=== PATIENT | male | born 1945 | race Caucasian/White ===

== ENCOUNTER 2019-02-17 10:28 | Day surgery (SDC) | payer OTHER, MEDICARE ==
[2019-02-17] MEDS ORDERED: Ringers Lactate 1,000 ML IV ONE (10:52)
[2019-02-17] MEDS ORDERED: LIDOCAINE 1% MPF 2 ML AMPULE ONE (13:26)
[2019-02-17] MEDS ORDERED: PROPOFOL 200 MG/20 ML VIAL IV ONE (13:26)
--- NOTE | 2019-02-17 16:03 | ENDO RPT ---
[address], [address] COLONOSCOPY PROCEDURE REPORT EXAM DATE: 02/17/2019 PATIENT NAME: Brian Elizondo MR #: [id number] BIRTHDATE: 1945 ATTENDING: Manish Lam Dr STATUS: outpatient PARTY PLAN DEALER: Arlette Shelton RN and Mindy Keith RN INDICATIONS: The patient is a 73 yr old Male here for a colonoscopy due to personal history of colon polyps PROCEDURE PERFORMED: Colonoscopy MEDICATIONS: Per Anesthesia. ESTIMATED BLOOD LOSS: None CONSENT: The patient understands the risks and benefits of the procedure and understands that these risks include, but are not limited to: sedation, allergic reaction, infection, perforation and/or bleeding. Alternative means of evaluation and treatment include, among others: physical exam, x-rays, and/or surgical intervention. The patient elects to proceed with this endoscopic procedure. DESCRIPTION OF PROCEDURE: During intra-op preparation period all mechanical medical equipment was checked for proper function. Hand hygiene and appropriate measures for infection prevention was taken. Procedure, possible complications, alternatives including, but not limited to possibility of bleeding, perforation, tear, infection, sepsis, need for surgery, need for blood transfusion, were explained to the patient. After the risks, benefits and alternatives of the procedure were thoroughly explained, Informed consent was verified, confirmed and timeout was successfully executed by the treatment team. The patient was placed in the left lateral position. A digital rectal exam was performed and revealed no abnormalities of the rectum. After appropriate level of anesthesia, the scope was passed. The EC-[id number] ([id number]) endoscope was introduced through the anus and advanced to the terminal ileum which was intubated for a short distance. The quality of the prep was good. The instrument was then slowly withdrawn as the colon was fully examined. Scope withdrawal time was 7 minutes. COLON FINDINGS: Mild diverticulosis was noted in the sigmoid colon. No bleeding was noted from the diverticulosis. Moderate sized internal hemorrhoids were found. Retroflexed views revealed medium hemorrhoids. The scope was then completely withdrawn from the patient and the procedure terminated. ADVERSE EVENTS: There were no complications. IMPRESSIONS: 1. Mild diverticulosis in the sigmoid colon 2. Moderate sized internal hemorrhoids 3. Intubation to terminal ileum 4. Personal history of colon polyps RECOMMENDATIONS: fiber rich diet RECALL: Return in 3 year(s) for Colonoscopy. Manish Lam Dr eSigned: Manish Lam Dr 02/17/2019 1:43 PM cc: Gelacio Otto CPT CODES: ICD9 CODES: PATIENT NAME: Brian ElizondoEllen MR#: [id number]
== END 2019-02-17 14:07 | disposition home or self-care (01) ==
LOC: OR 10:28
PROVIDERS: ATTEND Internal Medicine Gastroenterology
PROC: 0DJD8ZZ Inspection of Lower Intestinal Tract, Via Natural or Artificial Opening Endoscopic (ICD-10-PCS; principal; 2019-02-17 13:30)
DX: Z12.11 Encounter for screening for malignant neoplasm of colon (principal); Z86.010 Personal history of colon polyps; K57.30 Diverticulosis of large intestine without perforation or abscess without bleeding; K64.8 Other hemorrhoids; E78.5 Hyperlipidemia, unspecified; I48.91 Unspecified atrial fibrillation; I25.10 Atherosclerotic heart disease of native coronary artery without angina pectoris; I10 Essential (primary) hypertension; I73.9 Peripheral vascular disease, unspecified; Z79.01 Long term (current) use of anticoagulants; Z79.899 Other long term (current) drug therapy; Z95.1 Presence of aortocoronary bypass graft; Z95.5 Presence of coronary angioplasty implant and graft; Z95.810 Presence of automatic (implantable) cardiac defibrillator; Z86.718 Personal history of other venous thrombosis and embolism
CPT/HCPCS: G0105; J2704; J2001

== ENCOUNTER → 2019-11-18 | Day surgery (SDC) | payer OTHER, MEDICARE ==
[2019-11-18 09:44] VITALS: BMI 27.6
--- NOTE | 2019-11-18 12:13 | RAD REPORT ---
EXAM DESCRIPTION: RAD - Myelography Lumbar - 11/18/2019 12:00 pm CLINICAL HISTORY: M545 Lumbar radiculopathy COMPARISON: Lumbar Spine 3 Views dated 08/17/2019 TECHNIQUE: Lumbar puncture for myelographic injection was performed under fluoroscopic guidance. The procedure, risks and alternatives to the procedure were discussed with the patient in detail. After answering all questions, both oral and written consent were obtained. Time-out procedure was performe d. The patient was placed in an oblique prone position on the fluoroscopic table. The skin of the lower back was prepped and draped in the usual sterile fashion. After anesthetizing the skin and deeper sof t tissues with 1% lidocaine, a 22 gauge needle was advanced into the thecal sac at the L4-5 level. 10 cc of Isovue 200M was injected into the central canal. At the conclusion of the procedure the needle was withdrawn and a sterile bandage placed over the pun cture site. The patient tolerated the procedure well without immediate complications. Patient was tra nsferred to CT for CT lumbar myelography, separately reported. Total fluoro time: 0.1 minutes Images obtained: 4 IMPRESSION: Successful fluoroscopic guided lumbar puncture for CT myelogram.
--- NOTE | 2019-11-18 12:27 | RAD REPORT ---
EXAM DESCRIPTION: CT - Spine Lumbar Wo Con - 11/18/2019 12:00 pm CLINICAL HISTORY: Radiculopathy. M545 COMPARISON: Myelography Lumbar dated 11/18/2019; Lumbar Spine 3 Views dated 08/17/2019 TECHNIQUE: CT lumbar myelography was performed. High-resolution disc space images were obtained. Cor onal and sagittal re-formatted images were also obtained. Lumbar puncture procedure for myelographic contrast injection is separately reported. All CT scans are performed using dose optimization technique as appropriate and may include automated exposure control or mA/KV adjustment according to patient size. FINDINGS: No acute lumbar spine fracture seen. No aggressive marrow pattern or malalignment. Paraspinal tissues are normal in thickness. No paraspinal abscess or hematoma seen. T12-L1: No evidence of canal or foraminal stenosis. L1-2: Minimal posterior disc bulge with no evidence of significant canal or foraminal stenosis. L2-3: Mild concentric posterior disc bulge slightly asymmetric to the left. Mild facet and ligamentum flavum hypertrophy. No significant canal or foraminal stenosis. L3-4: Moderate posterior disc bulge with [id number]-pkulhuec facet and ligamentum flavum hypertrophy. Mi ld central canal narrowing is present with the central canal measuring 9-10 mm in anterior posterior dimension at this level. Mild narrowing the anterior inferior aspects of both exit foramina seen. L4-5: Moderate posterior disc bulge is present with moderate facet hypertrophy. No significant centra l canal stenosis evident. Moderate narrowing the anterior inferior aspects of both exit foramina. L5-S1: No significant canal or foraminal stenosis. Mild infrarenal abdominal aortic aneurysm is present measuring 3.3 cm in anterior-posterior dimension . IMPRESSION: Sijg-qo-khyhgrxs lower lumbar spondylosis is present. No severe central canal or foramin al stenosis suspected at any level. Prominent facet hypertrophy was seen at L4-5 bilaterally.
[2019-11-18 12:58] VITALS: BP 126/51; TEMP 97.4; O2SAT 98
== END ==
LOC: DS 08:55
PROVIDERS: ATTEND Specialist
DX: M54.5 Low back pain (principal)
CPT/HCPCS: 72131; 62304; Q9966

== ENCOUNTER 2020-11-04 17:32 | Inpatient (IN) | payer OTHER, MEDICARE ==
[2020-11-04] MEDS ORDERED: dexAMETHasone 10 MG/ML VIAL ONE (18:06)
[2020-11-04] MEDS ORDERED: IPRATROPIUM BROM 0.5MG/2.5ML ONE (18:06)
[2020-11-04] MEDS ORDERED: LEVALBUTEROL 1.25 MG/3 ML NEB ONE (18:06)
[2020-11-04 18:09] LABS: Absolute Lymphocytes (CBC) 3.7 K/uL (0.7-4.9); Basophils % 0.5 % (0-1.3); Hematocrit 41.8 % (39.6-49.0); Lymphocytes % 51.1 % (15.3-44.8); MPV 10.2 fL (7.6-11.3); RBC Red Blood Cell Count 4.62 M/uL (4.33-5.43)
[2020-11-04 18:12] LABS: Protime INR 2.01
--- NOTE | 2020-11-04 18:13 | EDPHYS ---
Physician Documentation [facility] Name: Brian Elizondo Age: 74 yrs Sex: Male : 1945 Arrival Date: 11/04/2020 Time: 17:33 Bed 8 Private MD: ED Physician Jamie Devine HPI: 11/04 18:16 This 74 yrs old Male presents to ER via Wheelchair with complaints of Covid snw +, Shortness Of Breath. 18:16 The patient has shortness of breath at rest. Onset: The symptoms/episode began/occurred snw suddenly, this morning. Duration: The symptoms are continuous, and are steadily getting worse. Associated signs and symptoms: Pertinent positives: fever, diarrhea. Severity of symptoms: At their worst the symptoms were severe in the emergency department the symptoms have improved moderately. The patient has not experienced similar symptoms in the past, but family has similar symptoms, spouse, intubated CoV[facility]+ at [facility]. The patient has not recently seen a physician. Historical: - Allergies: 18:04 No Known Allergies; bp - Home Meds: 18:12 atenolol 25 mg Oral tab 1 tab once daily [Active]; clonazepam 1 mg Oral tab 1 tab bp nightly [Active]; lisinopril 2.5 mg Oral tab 1 tab once daily [Active]; Plavix 75 mg Oral tab 1 tab once daily [Active]; Xarelto 20 mg oral tab 1 tab once daily [Active]; Vitamin C 1,000 mg Oral tab [Active]; - PMHx: 18:04 CHF; CAD; bp - PSHx: 18:04 CABG; AAA REPAIR; AICD PLACEMENT; bp - Immunization history:: Adult Immunizations. - Social history:: Smoking status: Patient/guardian denies using tobacco. ROS: 18:17 Eyes: Negative for injury, pain, redness, and discharge, ENT: Negative for injury, snw pain, and discharge, Neck: Negative for injury, pain, and swelling, Cardiovascular: Negative for chest pain, palpitations, and edema. 18:17 Back: Negative for injury and pain, : Negative for injury, bleeding, discharge, and swelling, MS/Extremity: Negative for injury and deformity, Skin: Negative for injury, rash, and discoloration, Neuro: Negative for headache, weakness, numbness, tingling, and seizure, Psych: Negative for depression, anxiety, suicide ideation, homicidal ideation, and hallucinations. 18:17 Constitutional: Positive for body aches, fatigue, fever, malaise. 18:17 Respiratory: Positive for cough, dyspnea on exertion, shortness of breath, at rest. 18:17 Abdomen/GI: Positive for diarrhea. Exam: 18:13 Head/Face: Normocephalic, atraumatic. Eyes: Pupils equal round and reactive to light, snw extra-ocular motions intact. Lids and lashes normal. Conjunctiva and sclera are non-icteric and not injected. Cornea within normal limits. Periorbital areas with no swelling, redness, or edema. ENT: Nares patent. No nasal discharge, no septal abnormalities noted. Tympanic membranes are normal and external auditory canals are clear. Oropharynx with no redness, swelling, or masses, exudates, or evidence of obstruction, uvula midline. Mucous membranes moist. Neck: Trachea midline, no thyromegaly or masses palpated, and no cervical lymphadenopathy. Supple, full range of motion without nuchal rigidity, or vertebral point tenderness. No Meningismus. 18:13 Abdomen/GI: Soft, non-tender, with normal bowel sounds. No distension or tympany. No guarding or rebound. No evidence of tenderness throughout. Back: No spinal tenderness. No costovertebral tenderness. Full range of motion. MS/ Extremity: Pulses equal, no cyanosis. Neurovascular intact. Full, normal range of motion. Neuro: Awake and alert, GCS 15, oriented to person, place, time, and situation. Cranial nerves II-XII grossly intact. Motor strength 5/5 in all extremities. Sensory grossly intact. Cerebellar exam normal. Normal gait. Psych: Awake, alert, with orientation to person, place and time. Behavior, mood, and affect are within normal limits. 18:13 Constitutional: The patient appears awake, diaphoretic, lethargic, in obvious distress, obviously ill, pale. 18:13 Chest/axilla: Inspection: pacemaker to left chest wall. 18:13 Cardiovascular: Rate: tachycardic, Rhythm: regular, Heart sounds: normal. 18:13 Respiratory: severe repiratory distress is noted, Respirations: labored breathing, that is severe, accessory muscle usage, that is severe, grunting, that is severe, intercostal retractions, shallow respirations, tachypnea, Breath sounds: decreased breath sounds, rhonchi, that are moderate, are scattered. 18:13 Skin: Appearance: Color: dusky, Temperature: hot, Moisture: diaphoretic, diaphoresis is noted. Vital Signs: 17:59 Pulse 127; Pulse Ox 75% on R/A; jd3 18:06 BP 141 / 70; Pulse 102; Resp 30 S; Temp 102.0(A); Pulse Ox 95% on 100% BiPAP; jd3 19:03 BP 100 / 37; Pulse 92; Resp 25 S; Pulse Ox 97% on BiPAP; jd3 19:30 BP 100 / 44; jd3 19:52 BP 85 / 70; Pulse 81; Resp 22 S; Temp 98.2(O); Pulse Ox 97% on BiPAP; jd3 20:30 BP 124 / 53; Pulse 85; Resp 24; Pulse Ox 99% on BiPAP; zb 21:30 BP 106 / 48; Pulse 69; Resp 23; Pulse Ox 98% on BiPAP; zb 23:30 BP 95 / 70; Pulse 67; Resp 22; Pulse Ox 100% on BiPAP; zb 12 00:00 BP 100 / 48; Pulse 63; Resp 20; Pulse Ox 98% on BiPAP; zb 12 19:03 provider notified of blood pressure jd3 MDM: 18:12 Patient medically screened. snw 18:13 Antibiotic administration: zithromax. Data reviewed: vital signs, nurses notes, lab snw test result(s), EKG, radiologic studies. Counseling: I had a detailed discussion with the patient and/or guardian regarding: the historical points, exam findings, and any diagnostic results supporting the discharge/admit diagnosis, lab results, radiology results, the need for further work-up and treatment in the hospital, family requests transfer to [facility]. 18:18 ED course: attempting transfer to [facility] at family request. snw 11/04 17:44 Order name: Amylase, Serum; Complete Time: 18:28 iw 11/04 17:44 Order name: Basic Metabolic Panel; Complete Time: 18:28 iw 11/04 17:44 Order name: Blood Culture Adult (2) iw 11/04 17:44 Order name: CBC with Diff; Complete Time: 18:25 iw 11/04 17:44 Order name: Ckmb; Complete Time: 18:28 11/04 17:44 Order name: CPK; Complete Time: 18:28 11/04 17:44 Order name: Lactate; Complete Time: 18:50 11/04 19:12 Interpretation: LAC 4.6. snw 11/04 17:44 Order name: LFT's; Complete Time: 18:28 11/04 17:44 Order name: Lipase; Complete Time: 18:28 11/04 17:44 Order name: Procalcitonin; Complete Time: 19:12 iw 11/04 17:44 Order name: Protime (+inr); Complete Time: 18:25 11/04 17:44 Order name: Ptt, Activated; Complete Time: 18:25 11/04 17:44 Order name: Troponin (emerg Dept Use Only); Complete Time: 18:28 11/04 17:44 Order name: Urine Microscopic Only; Complete Time: 19:49 11/04 17:44 Order name: Chest Single View XRAY; Complete Time: 18:51 11/04 17:54 Order name: Flu; Complete Time: 21:22 11/04 17:54 Order name: Ferritin; Complete Time: 19:45 11/04 17:57 Order name: ABG; Complete Time: 18:28 [facility] 11/04 17:57 Order name: BIPAP [facility] 11/04 19:35 Order name: Urine Dipstick--Ancillary (enter results); Complete Time: 19:45 [facility] 11/04 19:51 Order name: Urine Culture; Complete Time: 13:20 EDMS 11/04 20:29 Order name: SARS-COV-2 RT PCR; Complete Time: 20:30 EDMS 11/04 22:11 Order name: Lactate Sepsis 2 HR Follow-up; Complete Time: 13:20 EDMS 11/04 23:38 Order name: ABO/RH typing; Complete Time: 13:20 EDMS 11/05 07:20 Order name: Procalcitonin; Complete Time: 13:20 EDMS 11/05 07:23 Order name: C-Reactive Protein; Complete Time: 13:20 EDMS 11/05 07:23 Order name: Ferritin; Complete Time: 13:20 EDMS 11/05 07:46 Order name: CBC with Automated Diff; Complete Time: 13:20 EDMS 11/04 17:44 Order name: Accucheck; Complete Time: 18:01 iw 11/04 17:44 Order name: Cardiac monitoring; Complete Time: 18:01 iw 11/04 17:44 Order name: EKG - Nurse/Tech; Complete Time: 18:01 iw 11/04 17:44 Order name: IV Saline Lock - Large Bore; Complete Time: 18:01 iw 11/04 17:44 Order name: Labs collected and sent; Complete Time: 18:01 iw 11/04 17:44 Order name: O2 Per Protocol; Complete Time: 18:02 iw 11/04 17:44 Order name: O2 Sat Monitoring; Complete Time: 18:02 iw 11/04 17:44 Order name: Urine Dipstick-Ancillary (obtain specimen); Complete Time: 02:18 iw 11/04 18:08 Order name: Pugh; Complete Time: 02:18 sn 11/04 20:43 Order name: Labs - recollect needed; Complete Time: 02:18 11/04 21:12 Order name: CONS Physician Consult EDMS Administered Medications: 17:56 CANCELLED (Other Intervention Used): NS 0.9% (30 ml/kg) 30 ml/kg IV at bolus once; [facility] Sepsis Protocol 17:59 Drug: Decadron - Dexamethasone 10 mg Route: IVP; Site: right forearm; zb 18:50 Follow up: Response: No adverse reaction jd3 18:23 Drug: Albuterol - atroVENT (3:1) (2.5 mg - 0.5 mg) 3 ml Route: Nebulizer; jd3 19:00 Follow up: Response: No adverse reaction jd3 18:24 Drug: Zithromax 500 mg Route: IVPB; Infused Over: 1 hrs; Site: right forearm; jd3 19:29 Follow up: Response: No adverse reaction; IV Status: Completed infusion; IV Intake: zb 250ml 18:25 Drug: NS 0.9% 500 ml Route: IV; Rate: bolus; Site: right forearm; jd3 19:00 Follow up: Response: No adverse reaction; IV Status: Completed infusion; IV Intake: jd3 500ml 18:47 Drug: NS 0.9% 500 ml Route: IV; Rate: bolus; Site: right forearm; jd3 19:28 Follow up: Response: No adverse reaction; Blood pressure is unchanged; IV Status: zb Completed infusion; IV Intake: 500ml 18:48 Not Given (Patient Refused): morphine 2 mg IVP once; (PAIN>8) RASS on ADMN: Combtv4, jd3 Very Agttd3, Agttd2, Rstlss1, AlertClm0, Drwsy-1, LtSdtn-2, ModSdtn-3, DpSdtn-4, UnArsble-5 x2 19:20 Drug: NS 0.9% 500 ml Route: IV; Rate: bolus; Site: right forearm; zb 19:51 Follow up: Response: No adverse reaction; IV Status: Completed infusion; IV Intake: jd3 500ml 19:45 Drug: Zosyn 3.375 grams Route: IVPB; Infused Over: 60 mins; Site: right forearm; jd3 19:58 Drug: NS 0.9% 500 ml Route: IV; Rate: bolus; Site: right forearm; jd3 Disposition: 11/04/20 18:12 Hospitalization ordered by Milad Oneill for Inpatient Admission. Preliminary diagnosis is SARS-associated coronavirus as the cause of diseases classified elsewhere. - Bed requested for Intensive Care Unit. - Status is Inpatient Admission. lp1 - Condition is Fair. - Problem is new. - Symptoms are unchanged. Addendum: 11/08/2020 04:53 Co-signature as Attending Physician, Jamie Devine MD I agree with the assessment and c mccarthy plan of care. Signatures: Dispatcher [employer] EDMS Geraldo Madera RN RN sg Anderson, Corey, MD MD cha Waters, Shelly, SCHOOL TRANSPORTATION SUPERVISOR-C SCHOOL TRANSPORTATION SUPERVISOR-Csnw Fariba Ac RN RN iw Haleigh Ruiz RN RN lp1 Dallas Bruno PA PA jr8 René Brito RN RN jSatish Moore RN RN ja1 Peltier, Brian, RN RN bp Westbrook, MyKena mw2 Mare Quinn RN RN zb Corrections: (The following items were deleted from the chart) 11/04 17:56 17:44 NS 0.9% (30 ml/kg) 30 ml/kg IV at bolus once; Sepsis Protocol ordered. iw snquintin 18:50 18:12 Hospitalization Ordered by Roslyn Montalvo MD for Inpatient Admission. Preliminary sn diagnosis is SARS-associated coronavirus as the cause of diseases classified elsewhere. Bed requested for Intensive Care Unit. Status is Inpatient Admission. Condition is Serious. Problem is new. Symptoms are unchanged. snw 19:50 17:54 CORONAVIRUS+.ELIZABETH ordered. EDID EDMS 20:30 18:50 11/04/2020 18:12 Hospitalization Ordered by Milad Oneill for Inpatient jr8 Admission. Preliminary diagnosis is SARS-associated coronavirus as the cause of diseases classified elsewhere. Bed requested for Intensive Care Unit. Status is Inpatient Admission. Condition is Serious. Problem is new. Symptoms are unchanged. snw 20:30 20:30 11/04/2020 18:12 Hospitalization Ordered by Milad Oneill for Inpatient jr8 Admission. Preliminary diagnosis is SARS-associated coronavirus as the cause of diseases classified elsewhere. Bed requested for Telemetry/MedSurg (Inpatient). Status is Inpatient Admission. Condition is Serious. Problem is new. Symptoms are unchanged. jr8 21:23 20:30 11/04/2020 18:12 Hospitalization Ordered by Milad Oneill for Inpatient mw2 Admission. Preliminary diagnosis is SARS-associated coronavirus as the cause of diseases classified elsewhere. Bed requested for Telemetry/MedSurg (Inpatient). Status is Inpatient Admission. Condition is Fair. Problem is new. Symptoms are unchanged. jr8 11/05 19:59 12 21:23 11/04/2020 18:12 Hospitalization Ordered by Milad Oneill for Inpatient ja1 Admission. Preliminary diagnosis is SARS-associated coronavirus as the cause of diseases classified elsewhere. Bed requested for [facility] ER HOLD. Status is Inpatient Admission. Condition is Fair. Problem is new. Symptoms are unchanged. mw2 11/05 20:49 19:59 11/04/2020 18:12 Hospitalization Ordered by Milad Oneill for Inpatient lp1 Admission. Preliminary diagnosis is SARS-associated coronavirus as the cause of diseases classified elsewhere. Bed requested for Intensive Care Unit. Status is Inpatient Admission. Condition is Fair. Problem is new. Symptoms are unchanged. ja1
--- NOTE | 2020-11-04 18:13 | ER ---
Nurse's Notes [facility] Name: Brian Elizondo Age: 74 yrs Sex: Male : 1945 Arrival Date: 11/04/2020 Time: 17:33 Bed 8 Private MD: Diagnosis: SARS-associated coronavirus as the cause of diseases classified elsewhere Presentation: 11/04 17:59 Chief complaint: Patient's son or daughter states: FEVER AND SOB TODAY, SPOUSE IS COVID bp +. Coronavirus screen: cough unrelated to allergies, fever, headache, shortness of breath. Ebola Screen: No symptoms or risks identified at this time. Initial Sepsis Screen: Does the patient meet any 2 criteria? RR > 20 per min. Temp <36.0*C (96.8*F)) or > 38.3*C (100.9*F). HR > 90 bpm. Yes Does the patient have a suspected source of infection? Yes: Productive cough/pneumonia. Risk Assessment: Do you want to hurt yourself or someone else? Patient reports no desire to harm self or others. Onset of symptoms was November 04, 2020. 17:59 Method Of Arrival: Wheelchair bp 17:59 Acuity: ALCIDES 2 bp Triage Assessment: 18:04 General: Appears distressed, uncomfortable, Behavior is appropriate for age, agitated, bp anxious. Pain: Denies pain. EENT: No deficits noted. Neuro: Level of Consciousness is awake, alert, obeys commands, Oriented to person, place, time, situation, Appropriate for age. Cardiovascular: Rhythm is sinus tachycardia. Respiratory: Reports shortness of breath Onset: The symptoms/episode began/occurred today, the patient has severe shortness of breath. GI: No signs and/or symptoms were reported involving the gastrointestinal system. : No signs and/or symptoms were reported regarding the genitourinary system. Derm: No deficits noted. Musculoskeletal: No deficits noted. Historical: - Allergies: 18:04 No Known Allergies; bp - Home Meds: 18:12 atenolol 25 mg Oral tab 1 tab once daily [Active]; clonazepam 1 mg Oral tab 1 tab bp nightly [Active]; lisinopril 2.5 mg Oral tab 1 tab once daily [Active]; Plavix 75 mg Oral tab 1 tab once daily [Active]; Xarelto 20 mg oral tab 1 tab once daily [Active]; Vitamin C 1,000 mg Oral tab [Active]; - PMHx: 18:04 CHF; CAD; bp - PSHx: 18:04 CABG; AAA REPAIR; AICD PLACEMENT; bp - Immunization history:: Adult Immunizations. - Social history:: Smoking status: Patient/guardian denies using tobacco. Screenin:00 Abuse screen: Denies threats or abuse. Denies injuries from another. Nutritional bp screening: No deficits noted. Tuberculosis screening: No symptoms or risk factors identified. Fall Risk None identified. Assessment: 18:06 General: SEE TRIAGE NOTE. PT MOVED TO TRAUMA 8 FOR IMMEDIATE CARE. Cardiovascular: bp Rhythm is sinus tachycardia. Respiratory: Airway is patent Respiratory effort is labored, gasping, Respiratory pattern is hyperventilation tachypnea Breath sounds with crackles bilaterally. Breath sounds with wheezes bilaterally. 19:00 General: Appears in no apparent distress. Behavior is calm, cooperative, appropriate zb for age. Neuro: Level of Consciousness is awake, alert, obeys commands, Oriented to person, place, time, situation. Cardiovascular: Heart tones Patient's skin is warm and dry. Respiratory: Airway is patent Respiratory effort is labored, Respiratory pattern is hyperventilation tachypnea Breath sounds with crackles bilaterally. GI: Bowel sounds present X 4 quads. Parent/caregiver reports the patient having diarrhea. : No signs and/or symptoms were reported regarding the genitourinary system. EENT: No signs and/or symptoms were reported regarding the EENT system. Derm: No signs and/or symptoms reported regarding the dermatologic system. Musculoskeletal: Circulation, motion, and sensation intact. Range of motion: intact in all extremities. 19:54 Reassessment: Patient and/or family updated on plan of care and expected duration. Pain jd3 level reassessed. Patient states feeling better. Patient states symptoms have improved. 20:58 Reassessment: Patient and/or family updated on plan of care and expected duration. Pain zb level reassessed. family at bedside. sx improved. diaper and lopez placed. pt with more relaxed respiration, report feeling better. 21:33 Reassessment: Patient appears in no apparent distress at this time. Patient and/or zb family updated on plan of care and expected duration. Pain level reassessed. Respiratory: Airway is patent Respiratory effort is even, unlabored, Respiratory pattern is tachypnea. 22:09 Reassessment: daughter: Kiarra Murphy, emergency contact, . jd3 22:52 Reassessment: [employer] pharmacist notified pt order for Remdesivir 200 mg IVPB, a sg voicemail has been left. Nova DEL VALLE notified that the [employer] [facility] pharmacy has not answered. Nova DEL VALLElion tamer to speak with the pharmacy [employer] for medication. 23:00 Reassessment: Patient appears in no apparent distress at this time. Patient and/or zb family updated on plan of care and expected duration. Pain level reassessed. daughter at bedside. pt moved from ER stretcher to hospital bed. 12 05:18 Reassessment: Pharmacist Yves states that will need to authorize the sg [employer] medication for the patient prior to releasing the med to the department. Blade Balancer Nova DEL VALLE notified. Vital Signs: 12 17:59 Pulse 127; Pulse Ox 75% on R/A; jd3 18:06 BP 141 / 70; Pulse 102; Resp 30 S; Temp 102.0(A); Pulse Ox 95% on 100% BiPAP; jd3 19:03 BP 100 / 37; Pulse 92; Resp 25 S; Pulse Ox 97% on BiPAP; jd3 19:30 BP 100 / 44; jd3 19:52 BP 85 / 70; Pulse 81; Resp 22 S; Temp 98.2(O); Pulse Ox 97% on BiPAP; jd3 20:30 BP 124 / 53; Pulse 85; Resp 24; Pulse Ox 99% on BiPAP; zb 21:30 BP 106 / 48; Pulse 69; Resp 23; Pulse Ox 98% on BiPAP; zb 23:30 BP 95 / 70; Pulse 67; Resp 22; Pulse Ox 100% on BiPAP; zb 11/05 00:00 BP 100 / 48; Pulse 63; Resp 20; Pulse Ox 98% on BiPAP; zb 11/04 19:03 provider notified of blood pressure jd3 ED Course: 17:33 Patient arrived in ED. ds1 17:55 [facility]C [facility] snw 17:55 Jamie Devine MD is Attending Physician. snw 17:55 Inserted saline lock: 20 gauge in right forearm, using aseptic technique. Blood bp collected. 18:00 Patient has correct armband on for positive identification. Bed in low position. Call bp light in reach. Side rails up X2. 18:01 Triage completed. bp 18:04 Arm band placed on. bp 18:06 Chest Single View XRAY In Process Unspecified. EDMS 18:12 Roslyn Montalvo MD is Hospitalizing Provider. snw 18:15 initiated a transfer with Ludivina from the [facility] Transfer Page. eb 18:21 Ludivina from the [facility] Transfer center called to decline the patient in transfer/ eb their COVID ICU is at capacity. 18:50 Jamie Devine MD is Hospitalizing Provider. snw 18:50 Hospitalizing Provider role handed off by Jamie Devine MD snw 18:50 Roslyn Montalvo MD is Hospitalizing Provider. snw 18:50 Roslyn Montalvo MD is Hospitalizing Provider. snw 18:50 Milad Oneill is Hospitalizing Provider. snw 18:58 Mare Quinn, IVON is Primary Nurse. zb 20:33 Lopez cath inserted, using sterile technique, 16 Fr., by nm, balloon inflated, to zb gravity drainage. 12 00:00 Report given to Haleigh DEL VALEL. jd3 00:00 No provider procedures requiring assistance completed. Patient admitted, IV remains in jd3 place. Administered Medications: 11/04 17:56 CANCELLED (Other Intervention Used): NS 0.9% (30 ml/kg) 30 ml/kg IV at bolus once; [facility] Sepsis Protocol 17:59 Drug: Decadron - Dexamethasone 10 mg Route: IVP; Site: right forearm; zb 18:50 Follow up: Response: No adverse reaction jd3 18:23 Drug: Albuterol - atroVENT (3:1) (2.5 mg - 0.5 mg) 3 ml Route: Nebulizer; jd3 19:00 Follow up: Response: No adverse reaction jd3 18:24 Drug: Zithromax 500 mg Route: IVPB; Infused Over: 1 hrs; Site: right forearm; jd3 19:29 Follow up: Response: No adverse reaction; IV Status: Completed infusion; IV Intake: zb 250ml 18:25 Drug: NS 0.9% 500 ml Route: IV; Rate: bolus; Site: right forearm; jd3 19:00 Follow up: Response: No adverse reaction; IV Status: Completed infusion; IV Intake: jd3 500ml 18:47 Drug: NS 0.9% 500 ml Route: IV; Rate: bolus; Site: right forearm; jd3 19:28 Follow up: Response: No adverse reaction; Blood pressure is unchanged; IV Status: zb Completed infusion; IV Intake: 500ml 18:48 Not Given (Patient Refused): morphine 2 mg IVP once; (PAIN>8) RASS on ADMN: Combtv4, jd3 Very Agttd3, Agttd2, Rstlss1, AlertClm0, Drwsy-1, LtSdtn-2, ModSdtn-3, DpSdtn-4, UnArsble-5 x2 19:20 Drug: NS 0.9% 500 ml Route: IV; Rate: bolus; Site: right forearm; zb 19:51 Follow up: Response: No adverse reaction; IV Status: Completed infusion; IV Intake: jd3 500ml 19:45 Drug: Zosyn 3.375 grams Route: IVPB; Infused Over: 60 mins; Site: right forearm; jd3 19:58 Drug: NS 0.9% 500 ml Route: IV; Rate: bolus; Site: right forearm; jd3 Intake: 19:00 IV: 500ml; Total: 500ml. jd3 19:28 IV: 500ml; Total: 1000ml. zb 19:29 IV: 250ml; Total: 1250ml. zb 19:51 IV: 500ml; Total: 1750ml. jd3 Outcome: 18:12 Decision to Hospitalize by Provider. snw 11/05 00:56 Admitted to ER Hold. Please see [facility] for further documentation. jd3 Condition: stable Instructed on the need for admit. 20:49 Patient left the ED. lp1 Signatures: Dispatcher [employer] EDGeraldo Tracey RN RN sg Waters, Shelly, OBSERVER HELPER-C OBSERVER HELPER-Rhiannon Shah ds1 Haleigh Ruiz RN RN lp1 René Brito RN RN jBarry Kelley RN RN bp Botello, Elizabeth eb Brown, Zipporah, RN RN zb Corrections: (The following items were deleted from the chart) 11/04 18:06 17:59 Pulse 127bpm; Pulse Ox 84% RA; bp jd3 19:29 19:03 BP 100 / 37; Pulse 92bpm; Resp 25bpm; Spontaneous; Pulse Ox 97% BiPAP; provider jd3 notified of blood pressure; jd3 19:30 19:03 BP 100 / 49; Pulse 92bpm; Resp 25bpm; Spontaneous; Pulse Ox 97% BiPAP; provider jd3 notified of blood pressure; jd3 21:06 20:58 Reassessment: Patient and/or family updated on plan of care and expected zb duration. Pain level reassessed. family at bedside. sx improved. diaper and lopez placed zb 11/05 00:51 11/04 19:54 Reassessment: Patient and/or family updated on plan of care and expected jd3 duration. Pain level reassessed. Patient states feeling better. Patient states symptoms have improved. jd3
[2020-11-04 18:14] LABS: Arterial Blood Carboxyhemoglob 1.2 % (0-1.5); Blood Gas Oxyhemoglobin 94.6 % (94-97); Blood O2 Saturation 96.6 % (92-98.5)
[2020-11-04 18:26] LABS: ALT/SGPT 133 U/L (12-78); AST/SGOT 210 U/L (15-37); Albumin 3.2 g/dL (3.4-5.0); Alkaline Phosphatase 74 U/L (45-117); Amylase 57 U/L (25-115); BUN Blood Urea Nitrogen 20 mg/dL (7-18); Bicarbonate 21 mmol/L (21-32); Bilirubin Direct 0.3 mg/dL (0-0.2); Bilirubin Total 0.8 mg/dL (0.2-1.0); CKMB Creatine Kinase MB < 1.0 ng/mL (0.3-3.6); Creatine Phosphokinase 199 U/L (39-308); Glucose Level 155 mg/dL (74-106); Lipase 131 U/L (73-393); Potassium 4.8 mmol/L (3.5-5.1); Protein, Total 7.1 g/dL (6.4-8.2); Sodium Level 138 mmol/L (136-145); Troponin (Emerg Dept Use Only) 0.08 ng/mL (0.0-0.045)
[2020-11-04] MEDS ORDERED: NA CHLORIDE 0.9% 500 ML ONE ×3 (18:29→20:10)
--- NOTE | 2020-11-04 18:48 | RAD REPORT ---
EXAM DESCRIPTION: RAD - Chest Single View - 11/04/2020 6:06 pm CLINICAL HISTORY: SOB Chest pain. COMPARISON: CHEST PA AND LAT 2 VIEW dated 10/01/2011; CHEST PA AND LAT 2 VIEW dated 04/02/2008 FINDINGS: Portable technique limits examination quality. Moderate to large areas of bilateral pulmonary infiltrate is present, greatest in the right upper lob e, most compatible with pneumonia. The heart is moderately enlarged with sternotomy wires present. Mu lti lead pacer/ defibrillator device is noted. IMPRESSION: Moderate to significant bilateral pneumonia pattern, greater on the right.
[2020-11-04] MEDS ORDERED: MORPHINE 2 MG/ML SYR ONE (18:54)
[2020-11-04] MEDS ORDERED: AZITHROMYCIN IV 500 MG in NA CHLORIDE 0.9% 250 ML IVPB ONE (19:00)
[2020-11-04 19:37] LABS: Urine Blood 1+ (NEG); Urine Glucose NEGATIVE (NEG); Urine Protein 3+ (NEG); Urine Specific Gravity >1.030 (1.005-1.030); Urine pH 5.5 (5.0-7.0)
[2020-11-04] MEDS ORDERED: PIPER/TAZO/NS 3.375gm 0 GM/0 ML BAG ONE (19:47)
[2020-11-04 19:48] LABS: Urine Bacteria 20-50 /HPF (NONE SEEN); Urine RBC <5 /HPF (NONE SEEN)
[2020-11-04 19:49] LABS: Urine Amorphous Sediment 2+ /HPF (NONE SEEN); Urine Mucus 3+ /HPF (NONE SEEN)
[2020-11-04] MEDS ORDERED: RIVAROXABAN 10 MG TABLET PO SCH (22:16)
[2020-11-04] MEDS ORDERED: Remdesivir 200 MG in NA CHLORIDE 0.9% 250 ML IV ONE (22:16)
[2020-11-04] MEDS ORDERED: DIPHENHYDRAMINE 50 MG/ML VIAL IV ONE (22:16)
[2020-11-04] MEDS ORDERED: ACETAMINOPHEN 325 MG TABLET PO ONE (22:16)
[2020-11-04] MEDS ORDERED: NA CHLORIDE 0.9% 250 ML IV ONE (22:16)
[2020-11-04] MEDS ORDERED: DIPHENHYDRAMINE 50 MG/ML VIAL ONE (23:15)
[2020-11-04] MEDS ORDERED: NA CHLORIDE 0.9% 0 ML ONE (23:15)
[2020-11-04] MEDS ORDERED: ACETAMINOPHEN 325 MG TABLET ONE (23:17)
--- NOTE | 2020-11-04 23:58 | P.HP ---
Certification for Inpatient Patient admitted to: Inpatient With expected LOS: >2 Midnights Patient will require the following post-hospital care: None Practitioner: I am a practitioner with admitting privileges, knowledge of patient current condition, hospital course, and medical plan of care. Services: Services provided to patient in accordance with Admission requirements found in Title 42 Section 412.3 of the Code of Federal Regulations <Asher Bruno - Last Filed: 11/04/20 23:45> Patient History Date of Service: 11/04/20 Primary Care Provider: No PCP Reason for admission: Severe Sepsis, COVID-19, Pneumonia History of Present Illness: This is a 74-year-old male that was brought in by family to the emergency room today for increased shortness of breath that started today. Patient stated that he has had diarrhea and fever for the last week or more but today started with shortness of breath. Currently patient's is [facility] in the medical center for COVID and is intubated. Family stated that they were going to initially drive him up there but progressively got worse in the car and started to become diaphoretic and more short of breath. Was diverted to the hospital at that time. Patient noted to have elevated troponin at 0.08 a pro calcitonin of 11.65 and a lactate of 4.6. Patient did have a fever as well at 102.0 and was tachycardic upon arrival with a room air saturation of 75%. Patient did test coated positive in the emergency room. Concern for sepsis as well based on lab values. Chest x-ray did show bilateral pulmonary up a cities worse on the right side suggestive of pneumonia. Hospital was consulted at that time for admission. Home medications list reviewed: Yes - Past Medical/Surgical History Diabetic: No - Social History Smoking Status: Never smoker Smoking therapy provided: No Alcohol use: No CD- Drugs: No Caffeine use: Yes Place of Residence: Home <PatcherelleAsher - Last Filed: 11/04/20 23:45> Date of Service: 11/05/20 - Family History Mother -: Cancer Notes: Brain cancer Father -: Cancer Notes: Prostate cancer <mejia zambrano - Last Filed: 11/05/20 17:55> Allergies iodine Allergy (Verified 11/05/20 01:00) Hives/Rash Home Medications: Clopidogrel Bisulfate [Plavix] 75 mg PO DAILY 02/17/19 Lisinopril [Zestril] 2.5 mg PO DAILY 02/17/19 Rivaroxaban [Xarelto] 20 mg PO BEDTIME 02/17/19 atenoloL [Tenormin] 25 mg PO DAILY 02/17/19 clonazePAM [Clonazepam] 1 mg PO BEDTIME 02/17/19 Ascorbic Acid [Vitamin C] 1,000 mg PO DAILY 11/05/20 Review of Systems General: Fever, Chills, Sweats, Malaise Eyes: Unremarkable ENT: Unremarkable Respiratory: Shortness of Breath, SOB with Excertion Cardiovascular: Unremarkable Gastrointestinal: Unremarkable Genitourinary: Unremarkable Musculoskeletal: Unremarkable Integumentary: Unremarkable Neurological: Unremarkable Lymphatics: Unremarkable <Asher Bruno - Last Filed: 11/04/20 23:45> Physical Examination - Vital Signs Temperature: 102.0 F Blood Pressure: 102/64 Pulse: 67 Respirations: 30 Pulse Ox (%): 95 (BIPAP) - Physical Exam General: Alert, In no apparent distress, Oriented x3, Cooperative HEENT: PERRLA, EOMI Neck: Supple, JVD not distended, No Thyromegaly Respiratory: Crackles/rales Cardiovascular: No edema, Normal pulses, Regular rate/rhythm, Normal S1 S2, No gallops, No rubs, No murmurs Capillary refill: <2 Seconds Gastrointestinal: Soft and benign, Non-distended, No ascites, No tenderness, No masses, No rebound, No guarding Musculoskeletal: No clubbing, No swelling, No contractures, No erythema, No tenderness, No warmth Integumentary: No rashes, No breakdown, No significant lesion, No tenderness/swelling, No erythema, No warmth, No cyanosis Neurological: Normal speech, Normal strength at 5/5 x4 extr, Normal tone, Sensation intact, Normal affect Lymphatics: No axilla or inguinal lymphadenopathy - Studies Laboratory Data (last 24 hrs) 11/04/20 17:49: PT 23.4 H, INR 2.01, APTT 34.1 11/04/20 17:49: WBC 7.3, Hgb 14.0, Hct 41.8, Plt Count 105 L 11/04/20 17:49: Sodium 138, Potassium 4.8, BUN 20 H, Creatinine 1.65 H, Glucose 155 H, Total Bilirubin 0.8, AST 210 H, ALT 133 H, Alkaline Phosphatase 74, Amylase 57, Lipase 131 Microbiology Data (last 24 hrs): 11/04/20 17:54 Nasopharnyx Influenza Type A Antigen Screen - Final 11/04/20 17:54 Nasopharnyx Influenza Type B Antigen Screen - Final <Asher Bruno - Last Filed: 11/04/20 23:45> - Studies Laboratory Data (last 24 hrs) 11/04/20 17:49: PT 23.4 H, INR 2.01, APTT 34.1 11/04/20 17:49: WBC 7.3, Hgb 14.0, Hct 41.8, Plt Count 105 L 11/04/20 17:49: Sodium 138, Potassium 4.8, BUN 20 H, Creatinine 1.65 H, Glucose 155 H, Total Bilirubin 0.8, AST 210 H, ALT 133 H, Alkaline Phosphatase 74, Amylase 57, Lipase 131 Microbiology Data (last 24 hrs): 11/04/20 17:54 Nasopharnyx Influenza Type A Antigen Screen - Final 11/04/20 17:54 Nasopharnyx Influenza Type B Antigen Screen - Final <mejia zambrano - Last Filed: 11/05/20 17:55> Assessment and Plan - Problems (Diagnosis) (1) Severe sepsis Current Visit: Yes Status: Acute (2) Pneumonia Current Visit: Yes Status: Acute (3) COVID-19 Current Visit: Yes Status: Acute - Plan 1. Patient admitted to COVID unit for further evaluation 2. Patient started on broad spectrum Abx for sepsis with suspected pneumonia 3. Fluids per sepsis protocol was given. Will hold otherwise for now as patient has covid unless BP decreases 4. Patient started on steroids, Remdisivir, and plasma for severe covid 5. Pulmonology consulted 6. Will continue patient Xarelto as he is already on this for other heart related conditions 7. Patient will remain on BIPAP for now with intent to downgrade to High Flow if her improves over next 24 hours or so 8. Will trend procalcitonin and CRP levels 9. Cardiology consulted as well Discharge Plan: Home Plan to discharge in: Greater than 2 days - Advance Directives Does patient have a Living Will: Yes Does patient have a Durable POA for Healthcare: Yes - Code Status/Comfort Care Code Status Assessed: Yes Code Status: Do Not Intubate Critical Care: Yes (30 minutes assessing patient, documenting, and reviwing labs and imaging) Time Spent Managing Pts Care (In Minutes): 70 <Asher Bruno - Last Filed: 11/04/20 23:45> - Problems (Diagnosis) (1) Acute respiratory failure with hypoxia Current Visit: Yes Status: Acute (2) Pneumonia due to 2019 novel coronavirus Current Visit: Yes Status: Acute (3) Severe sepsis Current Visit: Yes Status: Acute Physician Review: Patient Assessed, Agree with Above Assessment and Plan Physician Review Additional Text: Acute respiratory failure with hypoxia COVID pneumonia Plan: BiPAP therapy IV steroid Patient given convalescent plasma. Pulmonology consult. <mejia zambrano - Last Filed: 11/05/20 17:55>
[2020-11-05] MEDS ORDERED: RIVAROXABAN 20 MG TABLET PO ONE ×2 (00:26→18:06)
[2020-11-05] MEDS ORDERED: DIPHENHYDRAMINE 50 MG/ML VIAL ONE (03:44)
[2020-11-05] MEDS ORDERED: ACETAMINOPHEN 325 MG TABLET ONE (03:44)
[2020-11-05] MEDS ORDERED: NA CHLORIDE 0.9% 250 ML ONE (03:45)
[2020-11-05] MEDS ORDERED: PIPER/TAZO/NS 3.375gm 3.375 GM/100 ML BAG IVPB SCH ×2 (05:00→17:00)
[2020-11-05 06:25] LABS: Absolute Lymphocytes (CBC) 0.6 K/uL (0.7-4.9); Basophils % 0.3 % (0-1.3); Lymphocytes % 15.5 % (15.3-44.8); MPV 9.9 fL (7.6-11.3); RBC Red Blood Cell Count 3.56 M/uL (4.33-5.43)
[2020-11-05] MEDS ORDERED: PIPER/TAZO/NS 3.375gm 3.375 GM/100 ML BAG ONE (06:55)
[2020-11-05 07:23] LABS: Ferritin 4254.8 ng/mL (26-388)
[2020-11-05] MEDS: THIAMINE HCL 100 MG TABLET PO SCH (09:00)
[2020-11-05] MEDS ORDERED: FAMOTIDINE 20 MG/2 ML VIAL IV SCH (09:00)
[2020-11-05] MEDS: VITAMIN D 1000 UNIT TAB PO SCH (09:00)
[2020-11-05] MEDS: METHYLPREDNISOLONE 125 MG INJ IV SCH ×2 (09:00→21:01)
[2020-11-05] MEDS ORDERED: Remdesivir 100 MG in NA CHLORIDE 0.9% 250 ML IV SCH (09:00)
[2020-11-05] MEDS ORDERED: FAMOTIDINE 20 MG/2 ML VIAL IV ONE (09:46)
[2020-11-05] MEDS ORDERED: METHYLPREDNISOLONE 40 MG INJ ONE (09:46)
[2020-11-05] MEDS ORDERED: NA CHLORIDE 0.9% 500 ML IV PRN (11:07)
[2020-11-05] MEDS: ATORVASTATIN 20 MG TAB PO SCH ×2 (11:11→21:01)
--- NOTE | 2020-11-05 11:12 | P.CNS ---
Date of Consult: 11/07/20 Primary Care Provider: No PCP Chief Complaint: Severe Sepsis, COVID-19, Pneumonia History of Present Illness: Patient is 74 years of age admitted with pneumonia due to holly virus is been sick for about a week patient tested positive for coronavirus is is in [facility] intubated currently saturating 100% on 40% FiO2 on BiPAP feeling fine Allergies iodine Allergy (Verified 11/05/20 01:00) Hives/Rash Home Medications: Clopidogrel Bisulfate [Plavix] 75 mg PO DAILY 02/17/19 Lisinopril [Zestril] 2.5 mg PO DAILY 02/17/19 Rivaroxaban [Xarelto] 20 mg PO BEDTIME 02/17/19 atenoloL [Tenormin] 25 mg PO DAILY 02/17/19 clonazePAM [Clonazepam] 1 mg PO BEDTIME 02/17/19 Ascorbic Acid [Vitamin C] 1,000 mg PO DAILY 11/05/20 - Past Medical/Surgical History Diabetic: No -: CHF -: CAD -: RLS -: CABG -: AAA Repair -: AICD placement -: Jessica - Family History Mother Medical History: Cancer Notes: Brain cancer Father Medical History: Cancer Notes: Prostate cancer - Social History Alcohol use: No CD- Drugs: No Caffeine use: Yes Place of Residence: Home Review of Systems General: Weakness Respiratory: Cough, Shortness of Breath Physical Examination Temp Pulse Resp BP Pulse Ox 98.2 F 63 14 98/49 L 100 11/05/20 07:59 11/05/20 07:59 11/05/20 07:59 11/05/20 07:59 11/05/20 07:59 General: Alert, In no apparent distress, Oriented x3 Respiratory: Crackles/rales (Crackles on the right side) Cardiovascular: No edema, Regular rate/rhythm, Normal S1 S2 Laboratory Data (last 24 hrs) 11/04/20 17:49: PT 23.4 H, INR 2.01, APTT 34.1 11/04/20 17:49: WBC 7.3, Hgb 14.0, Hct 41.8, Plt Count 105 L 11/04/20 17:49: Sodium 138, Potassium 4.8, BUN 20 H, Creatinine 1.65 H, Glucose 155 H, Total Bilirubin 0.8, AST 210 H, ALT 133 H, Alkaline Phosphatase 74, Amylase 57, Lipase 131 - Problems (1) Pneumonia due to 2019 novel coronavirus Current Visit: Yes Status: Acute Plan: Patient is 74 years of age admitted with pneumonia due to holly virus he is improving roving changer to nasal cannula oxygen continue with steroids IV fluid bolus change to IV levofloxacin monitor CRP continue with the steroid monitor daily CRP levels and chemistries
[2020-11-05] MEDS ORDERED: Levofloxacin 750mg IV 750 MG/150 ML BAG IV SCH (12:00)
--- NOTE | 2020-11-05 12:07 | P.PN ---
Subjective Date of Service: 11/05/20 Primary Care Provider: No PCP Chief Complaint: Severe Sepsis, COVID-19, Pneumonia Patient is clinically improving. He was stable on the BiPAP when I saw him this morning with SaO2 at 100%. Physical Examination - Vital Signs Temperature: 98.2 F Blood Pressure: 98/49 Pulse: 63 Respirations: 14 Pulse Ox (%): 100 - Physical Exam General: In no apparent distress HEENT: Other (BIPAP in place) Cardiovascular: No edema, Regular rate/rhythm Gastrointestinal: Non-distended Musculoskeletal: No swelling Integumentary: No rashes, No erythema Neurological: Other (Nonfocal) - Studies Laboratory Data (last 24 hrs) 11/04/20 17:49: PT 23.4 H, INR 2.01, APTT 34.1 11/04/20 17:49: WBC 7.3, Hgb 14.0, Hct 41.8, Plt Count 105 L 11/04/20 17:49: Sodium 138, Potassium 4.8, BUN 20 H, Creatinine 1.65 H, Glucose 155 H, Total Bilirubin 0.8, AST 210 H, ALT 133 H, Alkaline Phosphatase 74, Amylase 57, Lipase 131 Microbiology Data (last 24 hrs): 11/04/20 17:54 Nasopharnyx Influenza Type A Antigen Screen - Final 11/04/20 17:54 Nasopharnyx Influenza Type B Antigen Screen - Final Assessment And Plan - Current Problems (Diagnosis) (1) Acute respiratory failure with hypoxia Current Visit: Yes Status: Acute (2) Pneumonia due to 2019 novel coronavirus Current Visit: Yes Status: Acute (3) Severe sepsis Current Visit: Yes Status: Acute - Plan Lactic level now within normal limit. Pro calcitonin level has improved. Continue IV steroid. Antibiotics switched to IV Levaquin. Continue to monitor inflammatory markers Continue Xarelto for thromboembolism prophylaxis. Pulmonary input appreciated. Status post convalescent plasma. Wean oxygen as tolerated.
[2020-11-05] MEDS: ASCORBIC ACID 500 MG TABLET PO SCH ×2 (13:21→21:01)
[2020-11-05] MEDS ORDERED: NA CHLORIDE 0.9% 0 ML ONE ×2 (13:27→13:28)
[2020-11-05] MEDS ORDERED: ASCORBIC ACID 500 MG TABLET ONE (13:28)
[2020-11-05] MEDS ORDERED: Levofloxacin 750mg IV 750 MG/150 ML BAG IV ONE (13:28)
[2020-11-05] MEDS ORDERED: RIVAROXABAN 20 MG TABLET PO SCH (17:00)
[2020-11-05] MEDS: ACETAMINOPHEN 325 MG TABLET PO PRN (17:25)
[2020-11-05] MEDS ORDERED: MELATONIN 3 MG TABLET PO SCH (21:00)
[2020-11-05] MEDS ORDERED: clonazePAM 1 MG TAB PO SCH (21:00)
[2020-11-05] MEDS ORDERED: NA CHLORIDE 0.9% 500 ML ONE (23:17)
[2020-11-06] MEDS: ACETAMINOPHEN 325 MG TABLET PO PRN (04:02)
[2020-11-06] MEDS ORDERED: LORazepam 2 MG/ML VIAL ONE ×2 (05:11→06:31)
[2020-11-06] MEDS ORDERED: HALOPERIDOL LACT 5 MG/ML INJ ONE (05:11)
[2020-11-06] MEDS ORDERED: METOPROLOL TARTRATE 5 MG/5 ML INJ IV ONE (05:33)
[2020-11-06] MEDS ORDERED: FUROSEMIDE 20 MG/ 2ML VIAL ONE (05:39)
[2020-11-06] MEDS ORDERED: MIDAZOLAM HCL 2 MG/2 ML INJ ONE (05:55)
[2020-11-06] MEDS ORDERED: RSI MEDICATION KIT IV ONE (06:24)
[2020-11-06] MEDS ORDERED: MIDAZOLAM HCL 2 MG/2 ML INJ IV PRN ×2 (06:25→08:12)
[2020-11-06] MEDS ORDERED: FUROSEMIDE 40 MG/4 ML VIAL ONE (06:28)
[2020-11-06 06:33] VITALS: BMI 30.2
[2020-11-06] MEDS ORDERED: LORazepam 2 MG/ML VIAL IV PRN ×3 (06:44→08:16)
[2020-11-06] MEDS ORDERED: HALOPERIDOL LACT 5 MG/ML INJ IV PRN ×2 (06:45→08:12)
[2020-11-06 06:54] LABS: C-Reactive Protein 68.1 mg/L (<3.00); Ferritin 3543.2 ng/mL (26-388)
[2020-11-06 08:35] LABS: Absolute Lymphocytes (CBC) 0.3 K/uL (0.7-4.9); Basophils % 0.4 % (0-1.3); Hematocrit 39.9 % (39.6-49.0); Lymphocytes % 2.6 % (15.3-44.8); MPV 10.2 fL (7.6-11.3); RBC Red Blood Cell Count 4.41 M/uL (4.33-5.43)
[2020-11-06 08:43] LABS: Potassium 4.6 mmol/L (3.5-5.1)
[2020-11-06 09:00] VITALS: TEMP 98.7
[2020-11-06] MEDS ORDERED: FAMOTIDINE 20 MG/2 ML VIAL IV SCH (09:00)
[2020-11-06] MEDS: THIAMINE HCL 100 MG TABLET PO SCH (09:00)
[2020-11-06] MEDS ORDERED: ZINC SULFATE 220 MG CAP PO SCH (09:00)
[2020-11-06] MEDS: VITAMIN D 1000 UNIT TAB PO SCH (09:00)
[2020-11-06] MEDS: ASCORBIC ACID 500 MG TABLET PO SCH (09:00)
[2020-11-06] MEDS ORDERED: METHYLPREDNISOLONE 125 MG INJ IV SCH (09:00)
[2020-11-06] MEDS ORDERED: ENOXAPARIN 100 MG/ML SYR SQ SCH (09:00)
[2020-11-06 10:32] LABS: White Blood Cell Scan OK (OK)
[2020-11-06 10:33] LABS: Blood Morphology Comment NOT SEEN (NOT SEEN); Platelet Estimate ADEQ
[2020-11-06] MEDS ORDERED: MORPHINE 4 MG/ML SYR IV PRN (10:33)
--- NOTE | 2020-11-06 11:47 | RAD REPORT ---
EXAM DESCRIPTION: RAD - Chest Single View - 11/06/2020 6:03 am CLINICAL HISTORY: shortness of breath Chest pain. COMPARISON: Chest Single View dated 11/04/2020; CHEST PA AND LAT 2 VIEW dated 10/01/2011; CHEST PA AN D LAT 2 VIEW dated 04/02/2008 FINDINGS: Portable technique limits examination quality. Significant bilateral areas of airspace consolidation again seen, mildly worse than on the comparativ e study. In particular, right lung base aeration appears moderately worse. The heart is mildly enlarg ed in size. Multilead pacer/defibrillator device is present.Sternotomy wires present. IMPRESSION: Mild to moderate worsening in lung aeration seen since comparative study.
[2020-11-06 11:48] VITALS: O2SAT 94
--- NOTE | 2020-11-06 12:44 | P.DS ---
Admission Date: 11/06/20 Discharge Date: 11/06/20 Primary Care Provider: Bibiana PCP Disposition: Reason for Admission: Severe Sepsis, COVID-19, Pneumonia - Problems (1) Acute respiratory failure with hypoxia Status: Acute (2) Pneumonia due to 2019 novel coronavirus Status: Acute (3) Severe sepsis Status: Acute Brief History of Present Illness: 74-year-old gentleman with a history of hypertension was brought to the emergency department due to shortness of breath. His symptoms started 1 week failure with fever and diarrhea. Patient developed shortness of breath which became rapidly progressive. [facility]. Patient tested positive for COVID pneumonia. His oxygen saturation was 75% on room air and he was in respiratory distress. His chest x-ray demonstrated bilateral infiltrate indicative of COVID pneumonia. Patient was requiring BiPAP ventilation in the ED. He was admitted for further management. Hospital Course: Patient admitted and ventilated with BiPAP. He was DO not intubate and do not resuscitate. He was started on IV steroid, given convalescent plasma. He was on Xarelto anticoagulation which was continued. Patient respiratory condition worsened. He was not tolerating BiPAP, he became tachypneic and tachycardic and quite uncomfortable. Family requested withdrawal of treatment and comfort measures. Comfort measures was initiated. Patient within a few hours after initiating the comfort measures. Patient on 11/06/2020 at 11:20 am. Vital Signs/Physical Exam: Temp Pulse Resp BP Pulse Ox 98.7 F 86 38 H 119/56 L 100 11/06/20 08:00 11/06/20 08:00 11/06/20 08:00 11/06/20 08:00 11/06/20 08:00 Laboratory Data at Discharge: WBC 10.0 K/uL (4.3-10.9) D 11/06/20 08:16 Hgb 13.0 g/dL (13.6-17.9) L 11/06/20 08:16 Hct 39.9 % (39.6-49.0) D 11/06/20 08:16 Plt Count 146 K/uL (152-406) L D 11/06/20 08:16 PT 23.4 SECONDS (9.5-12.5) H 11/04/20 17:49 INR 2.01 12/04/20 17:49 APTT 34.1 SECONDS (24.3-36.9) 11/04/20 17:49 Sodium 138 mmol/L (136-145) 11/06/20 08:16 Potassium 4.6 mmol/L (3.5-5.1) 11/06/20 08:16 BUN 32 mg/dL (7-18) H 11/06/20 08:16 Creatinine 1.52 mg/dL (0.55-1.3) H 11/06/20 08:16 Glucose 192 mg/dL (74-106) H 11/06/20 08:16 Total Bilirubin 0.8 mg/dL (0.2-1.0) 11/04/20 17:49 AST 210 U/L (15-37) H 11/04/20 17:49 ALT 133 U/L (12-78) H 11/04/20 17:49 Alkaline Phosphatase 74 U/L (45-117) 11/04/20 17:49 Amylase 57 U/L (25-115) 11/04/20 17:49 Lipase 131 U/L (73-393) 11/04/20 17:49 Home Medications: Clopidogrel Bisulfate [Plavix] 75 mg PO DAILY 02/17/19 Lisinopril [Zestril] 2.5 mg PO DAILY 02/17/19 Rivaroxaban [Xarelto] 20 mg PO BEDTIME 02/17/19 atenoloL [Tenormin] 25 mg PO DAILY 02/17/19 clonazePAM [Clonazepam] 1 mg PO BEDTIME 02/17/19 Ascorbic Acid [Vitamin C] 1,000 mg PO DAILY 11/05/20 Followup: Main Sosa MD [Primary Care Provider] -
[2020-11-06 13:49] VITALS: BP 78/41
--- NOTE | 2020-11-06 21:58 | P.PN ---
Subjective Date of Service: 11/06/20 Primary Care Provider: No PCP Chief Complaint: Severe respiratory distress Patient is 74 years of age admitted with holly virus pneumonia developed severe respiratory distress approximately 5 o'clock in the morning and he got up to use the bathroom was never able to recover become very tachycardic tachypneic severely agitated patient was given some Lasix BiPAP increased patient continued to remove the BiPAP chest x-ray showed a significant worsening of his pneumonia was sinus tachycardia Review of Systems is unable to be obtained Physical Examination - Vital Signs Temperature: 98.7 F Blood Pressure: 78/41 Pulse: 75 Respirations: 4 Pulse Ox (%): 43 - Physical Exam General: Severe distress, Confused Respiratory: Crackles/rales (Lateral extensive crackles) Cardiovascular: No edema, Regular rate/rhythm Assessment & Plan - Problems (Diagnosis) (1) Pneumonia due to 2019 novel coronavirus Status: Acute Plan: Patient is 74 years of age admitted with pneumonia due to holly virus 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 continue with steroids IV fluid bolus change to IV levofloxacin monitor CRP continue with the steroid monitor daily CRP levels and chemistries (2) Acute respiratory failure with hypoxia Status: Acute Plan: Patient is 74 years of age admitted with the holly virus pneumonia developed worsening significant respiratory distress bilateral infiltrates chest x-ray showed worsening he did respond to high levels of BiPAP and Lasix cold patient's daughter agreed be intubated they finally that was revoked unable to do blood gases renal function CT of improved critical care time 60 min - Code Status/Comfort Care Code Status: Full Code Physician Review: Patient Assessed, Agree with Above Assessment and Plan Critical Care: Yes Time Spent Managing Pts Care (In Minutes): 60
== END 2020-11-06 12:30 | disposition expired | DRG 871 ==
LOC: ER 17:32 → UNDOADMIN 21:49 → ERHOLD 21:49 → 3RD-ICU 11-05 20:11 → ERHOLD 11-05 20:11 → 3RD-ICU 11-06 06:28
PROVIDERS: ADMIT Internal Medicine; ATTEND Internal Medicine
PROC: XW033E5 Introduction of Remdesivir Anti-infective into Peripheral Vein, Percutaneous Approach, New Technology Group 5 (ICD-10-PCS; principal; 2020-11-06)
PROC: XW13325 Transfusion of Convalescent Plasma (Nonautologous) into Peripheral Vein, Percutaneous Approach, New Technology Group 5 (ICD-10-PCS; 2020-11-06)
PROC: 5A09457 Assistance with Respiratory Ventilation, 24-96 Consecutive Hours, Continuous Positive Airway Pressure (ICD-10-PCS; 2020-11-06)
DX: A41.89 Other specified sepsis (principal); U07.1 COVID-19; J12.89 Other viral pneumonia; J96.01 Acute respiratory failure with hypoxia; R65.20 Severe sepsis without septic shock; I10 Essential (primary) hypertension; I25.10 Atherosclerotic heart disease of native coronary artery without angina pectoris; Z79.02 Long term (current) use of antithrombotics/antiplatelets; Z79.01 Long term (current) use of anticoagulants; Z79.899 Other long term (current) drug therapy; Z95.810 Presence of automatic (implantable) cardiac defibrillator; Z88.8 Allergy status to other drugs, medicaments and biological substances; Z90.49 Acquired absence of other specified parts of digestive tract; Z95.1 Presence of aortocoronary bypass graft; Z66 Do not resuscitate
CPT/HCPCS: 36415; 36430; 51702; 71045; 80048; 80076; 81003; 81015; 82150; 82550; 82553; 82728; 82805; 83605; 83690; 84145; 84484; 85025; 85610; 85730; 86140; 86900; 86901; 86927; 87040; 87086; 87088; 87804; 93005; 94002; 94660; 94760; 96365; 96375; 99285; J0456; J1100; J1200; J1630; J1650; J1940; J2250; J2270; J2543; J2920; J2930; J7030; J7040; J7050; U0003